=== PATIENT | male | born 1980 | race Caucasian/White ===

== ENCOUNTER 2017-10-06 09:34 | Inpatient (IN) | payer OTHER ==
[2017-10-06 10:58] LABS: Basophils % (Auto) 0.3 % (0.0-1.8); Eosinophils # (Auto) 0.1 K/mm3 (0.0-0.4); Eosinophils % (Auto) 0.9 % (0.0-4.3); Lymphocytes # (Auto) 1.5 K/mm3 (1.2-5.4); Lymphocytes % (Auto) 9.6 % (13.4-35.0); Mean Corpuscular HGB Conc 34 % (32-34); Mean Corpuscular Hemoglobin 32 pg (28-32); Mean Corpuscular Volume 94 fl (84-94); Monocytes # (Auto) 0.8 K/mm3 (0.0-0.8); Monocytes % (Auto) 5.3 % (0.0-7.3); Platelet Count 210 K/mm3 (140-440); Red Blood Count 4.68 M/mm3 (3.65-5.03); Red Cell Distribution Width 13.2 % (13.2-15.2)
[2017-10-06 11:19] LABS: Alanine Aminotransferase 62 units/L (7-56); Albumin 4.5 g/dL (3.9-5); BUN/Creatinine Ratio 8; Blood Urea Nitrogen 7 mg/dL (9-20); Calcium 9.9 mg/dL (8.4-10.2); Hemolysis Index 11; Lipase 31 units/L (13-60)
[2017-10-06 12:03] LABS: Bilirubin,Urine NEG (Negative); Blood,Urine NEG (Negative); Color,Urine Yellow (Yellow); Protein,Urine <15 mg/dL mg/dL (Negative); WBC,Urine < 1.0 /HPF (0.0-6.0)
[2017-10-06] MEDS ORDERED: ZOFRAN IV ONE (18:17)
[2017-10-06] MEDS ORDERED: DILAUDID IV ONE (18:17)
[2017-10-06] MEDS ORDERED: PEPCID IV ONE (18:17)
[2017-10-06] MEDS ORDERED: NACL 0.9% 1000 ML 1,000 ML IV ONE (18:17)
--- NOTE | 2017-10-06 18:21 | Emergency Department Report ---
ED N/V/D HPI - General Chief complaint: Nausea/Vomiting/Diarrhea Stated complaint: NAUSEA/VOMITING Time Seen by Provider: 10/06/17 18:09 Source: patient, EMS Mode of arrival: Ambulatory Limitations: Language Barrier - History of Present Illness Initial comments: Patient is a 37-year-old male with past history of chronic back pain who is presenting with nausea vomiting for the past 2 days. Patient states he has been vomiting and now has a headache and fatigue. Patient states the abdominal pain is epigastric and right upper quadrant. Patient states she's never had pain in this area before. Patient denies any chest pain cough fevers chills or recent travel or diarrhea. Description of Vomiting: food contents, watery Associated Abdominal Pain: Yes Severity: moderate Pain Scale: 7 Quality: aching, sharp Consistency: constant Improves with: none Worsens with: none - Related Data Previous Rx's Medication Instructions Recorded Last Taken Type HYDROcodone/APAP 5-325 [Cadet 1 each PO Q6HR PRN #6 tablet 04/05/16 10/06/17 Rx 5/325] Ibuprofen [Motrin 800 MG tab] 800 mg PO Q8HR PRN #30 tablet 04/05/16 10/06/17 Rx Allergies Allergy/AdvReac Type Severity Reaction Status Date / Time No Known Allergies Allergy Unverified 04/05/16 14:44 ED Review of Systems ROS: Stated complaint: NAUSEA/VOMITING Other details as noted in HPI Comment: All other systems reviewed and negative ED Past Medical Hx - Past Medical History Previous Medical History?: Yes Additional medical history: Back pain and under pain management for back pain - Surgical History Past Surgical History?: Yes Additional Surgical History: Back - Social History Smoking Status: Current Every Day Smoker Substance Use Type: Prescribed - Medications Home Medications: Home Medications Medication Instructions Recorded Confirmed Last Taken Type HYDROcodone/APAP 5-325 [Cadet 1 each PO Q6HR PRN #6 tablet 04/05/16 10/06/17 Rx 5/325] Ibuprofen [Motrin 800 MG tab] 800 mg PO Q8HR PRN #30 tablet 04/05/16 10/06/17 Rx ED Physical Exam - General Limitations: Language Barrier General appearance: alert, in no apparent distress - Head Head exam: Present: atraumatic, normocephalic - Eye Eye exam: Present: normal appearance - ENT ENT exam: Present: mucous membranes moist - Neck Neck exam: Present: normal inspection - Respiratory Respiratory exam: Present: normal lung sounds bilaterally. Absent: respiratory distress - Cardiovascular Cardiovascular Exam: Present: regular rate, normal rhythm. Absent: systolic murmur, diastolic murmur, rubs, gallop - GI/Abdominal GI/Abdominal exam: Present: soft, normal bowel sounds - Rectal Rectal exam: Present: deferred - Extremities Exam Extremities exam: Present: normal inspection - Back Exam Back exam: Present: normal inspection - Neurological Exam Neurological exam: Present: alert, oriented X3 - Psychiatric Psychiatric exam: Present: normal affect, normal mood - Skin Skin exam: Present: warm, dry, intact, normal color. Absent: rash ED Course Vital Signs 10/06/17 10/06/17 10/06/17 10:07 16:27 17:51 Temperature 97.8 F 98.6 F Pulse Rate 71 76 69 Respiratory 20 18 16 Rate Blood Pressure 151/98 146/79 Blood Pressure 122/70 [Left] O2 Sat by Pulse 99 98 98 Oximetry ED Medical Decision Making - Lab Data Result diagrams: 10/06/17 10:43 10/06/17 10:43 Lab Results 10/06/17 10/06/17 10/06/17 Range/Units 10:43 10:43 11:03 WBC 15.1 H (4.5-11.0) K/mm3 RBC 4.68 (3.65-5.03) M/mm3 Hgb 15.0 (11.8-15.2) gm/dl Hct 44.0 (35.5-45.6) % MCV 94 (84-94) fl MCH 32 (28-32) pg MCHC 34 (32-34) % RDW 13.2 (13.2-15.2) % Plt Count 210 (140-440) K/mm3 Lymph % (Auto) 9.6 L (13.4-35.0) % Bates % (Auto) 5.3 (0.0-7.3) % Eos % (Auto) 0.9 (0.0-4.3) % Baso % (Auto) 0.3 (0.0-1.8) % Lymph # 1.5 (1.2-5.4) K/mm3 Bates # 0.8 (0.0-0.8) K/mm3 Eos # 0.1 (0.0-0.4) K/mm3 Baso # 0.0 (0.0-0.1) K/mm3 Seg Neutrophils % 83.9 H (40.0-70.0) % Seg Neutrophils # 12.7 H (1.8-7.7) K/mm3 Sodium 140 (137-145) mmol/L Potassium 4.4 (3.6-5.0) mmol/L Chloride 99.2 (98-107) mmol/L Carbon Dioxide 30 (22-30) mmol/L Anion Gap 15 mmol/L BUN 7 L (9-20) mg/dL Creatinine 0.9 (0.8-1.5) mg/dL Estimated GFR > 60 ml/min BUN/Creatinine Ratio 8 % Glucose 107 H (75-100) mg/dL Calcium 9.9 (8.4-10.2) mg/dL Total Bilirubin 0.70 (0.1-1.2) mg/dL AST 125 H (5-40) units/L ALT 62 H (7-56) units/L Alkaline Phosphatase 122 (35-129) units/L Total Protein 7.7 (6.3-8.2) g/dL Albumin 4.5 (3.9-5) g/dL Albumin/Globulin Ratio 1.4 % Lipase 31 (13-60) units/L Urine Color Yellow (Yellow) Urine Turbidity Clear (Clear) Urine pH 6.0 (5.0-7.0) Ur Specific [place] 1.012 (1.003-1.030) Urine Protein <15 mg/dl (Negative) mg/dL Urine Glucose (UA) Neg (Negative) mg/dL Urine Ketones Neg (Negative) mg/dL Urine Blood Neg (Negative) Urine Nitrite Neg (Negative) Urine Bilirubin Neg (Negative) Urine Urobilinogen 4.0 (<2.0) mg/dL Ur Leukocyte Esterase Neg (Negative) Urine WBC (Auto) < 1.0 (0.0-6.0) /HPF Urine RBC (Auto) 2.0 (0.0-6.0) /HPF - Medical Decision Making Patient is a 37-year-old male who is presenting with epigastric pain nausea vomiting. Patient had ultrasound done here that shows that he has large gallstones with some mild thickening of the gallbladder consistent with early acute cholecystitis. This week with Dr. Rosales with general surgery who stated that we should admit the patient to the hospital for IV antibiotics and he will reassess the patient morning to determine if the patient needs surgery. Patient will be started on Zosyn IV fluids and pain meds when necessary pain and will be admitted to the hospital at this time. Critical care attestation.: If time is entered above; I have spent that time in minutes in the direct care of this critically ill patient, excluding procedure time. ED Disposition Clinical Impression: Acute cholecystitis Disposition: DC-01 TO HOME OR SELFCARE Is pt being admited?: Yes Does the pt Need Aspirin: No Condition: Stable Referrals: PRIMARY CARE, [Primary Care Provider] - 3-5 Days
--- NOTE | 2017-10-06 20:03 | Ultrasound Report ---
FINAL REPORT PROCEDURE: US ABDOMEN LIMITED TECHNIQUE: Real-time sonography was performed of the right upper quadrant with image documentation. CPT 93881 HISTORY: ruq and epigastric pain COMPARISON: No prior studies are available for comparison. FINDINGS: Echogenicity the liver appears normal. No masses are seen. The intrahepatic ducts do not appear to be distended. No ascites is visualized. Gallbladder wall appears mildly thickened. Large gallstone is visualized in the gallbladder. The appearance suggest acute or chronic cholecystitis. Pancreas is obscured by bowel gas and cannot be commented on. Right kidney showed no abnormality. IMPRESSION: Cholelithiasis. Gallbladder wall is mildly thickened suggesting acute or chronic cholecystitis. No ascites is seen. No other abnormalities are identified. The pancreas is obscured by bowel gas and cannot be commented on.
[2017-10-06] MEDS ORDERED: ZOFRAN IV PRN (21:29)
[2017-10-06] MEDS: MORPHINE IV PRN (22:47)
[2017-10-06] MEDS: NACL 0.9% 1000 ML 1,000 ML IV SCH (22:47)
[2017-10-06] MEDS: ZOSYN/NS 4.5GM/100ML 4.5 GM/100 ML VIAL IV SCH (23:05)
[2017-10-07] MEDS: MORPHINE IV PRN ×4 (05:16→20:57)
[2017-10-07] MEDS: NACL 0.9% 1000 ML 1,000 ML IV SCH (05:20)
[2017-10-07] MEDS: ZOSYN/NS 4.5GM/100ML 4.5 GM/100 ML VIAL IV SCH ×2 (05:27→14:00)
[2017-10-07 07:20] LABS: Hematocrit 38.2 % (35.5-45.6); Hemoglobin 13.1 gm/dl (11.8-15.2); Mean Corpuscular HGB Conc 34 % (32-34); Mean Corpuscular Hemoglobin 32 pg (28-32); Mean Corpuscular Volume 93 fl (84-94); Platelet Count 193 K/mm3 (140-440); Red Blood Count 4.11 M/mm3 (3.65-5.03); Red Cell Distribution Width 12.8 % (13.2-15.2)
[2017-10-07 07:49] LABS: Alanine Aminotransferase 219 units/L (7-56); Albumin 3.8 g/dL (3.9-5); BUN/Creatinine Ratio 9; Blood Urea Nitrogen 7 mg/dL (9-20); Calcium 9.1 mg/dL (8.4-10.2); Hemolysis Index 3
[2017-10-07] MEDS ORDERED: LACTATED RINGERS 1,000 ML IV SCH (10:00)
[2017-10-07] MEDS ORDERED: DEMEROL IV PRN ×2 (10:30→15:26)
[2017-10-07] MEDS ORDERED: ZOFRAN IV PRN (10:30)
[2017-10-07] MEDS ORDERED: VERSED IV NR (10:30)
[2017-10-07] MEDS: ROXICODONE PO PRN ×3 (10:41→22:10)
--- NOTE | 2017-10-07 11:36 | History and Physical Report ---
History of Present Illness Date of examination: 10/07/17 Date of admission: 10/06/17 20:40 Chief complaint: RUQ pain with N/V. History of present illness: 37-year-old fairly healthy male presented to the emergency room last night with acute onset of right upper quadrant pain. Associated with nausea and vomiting. He felt feverish and had sweats. He has never had anything like this before. Pain is better now. Past History Past Medical History: other (chronic back pain) Past Surgical History: No surgical history Social history: smoking (1 pack per day). denies: alcohol abuse, prescription drug abuse, IV drug use Family history: no significant family history Medications and Allergies Allergies Allergy/AdvReac Type Severity Reaction Status Date / Time No Known Allergies Allergy Unverified 04/05/16 14:44 Home Medications Medication Instructions Recorded Confirmed Last Taken Type HYDROcodone/APAP 5-325 [[place] 1 each PO Q6HR PRN #6 tablet 04/05/16 10/06/17 Rx 5/325] Ibuprofen [Motrin 800 MG tab] 800 mg PO Q8HR PRN #30 tablet 04/05/16 10/06/17 Rx Morphine [Morphine TAB] 30 mg PO Q8HR PRN 10/07/17 10/07/17 10/06/17 History Oxycodone HCl [oxyCODONE TAB] 15 mg PO Q4HR PRN 10/07/17 10/07/17 10/06/17 History Active Meds: Active Medications Sodium Chloride (Nacl 0.9% 1000 Ml) 1,000 mls @ 150 mls/hr IV DIRECT SHORTY Last Admin: 10/07/17 05:20 Dose: 150 mls/hr Piperacillin Sod/Tazobactam Sod (Zosyn/Ns 4.5gm/100ml) 4.5 gm in 100 mls @ 200 mls/hr IV Q8HR SHORTY; Protocol Last Admin: 10/07/17 05:27 Dose: 200 mls/hr Lactated Ringer's (Lactated Ringers) 1,000 mls @ 100 mls/hr IV DIRECT SHORTY Stop: 10/07/17 18:00 Lactated Ringer's (Lactated Ringers) 1,000 mls @ 100 mls/hr IV DIRECT SHORTY Meperidine HCl (Demerol) 25 mg IV ONCE PRN PRN Reason: Shivering Stop: 10/07/17 16:00 Midazolam HCl (Versed) 2 mg IV PREOP NR Stop: 10/07/17 18:00 Morphine Sulfate (Morphine) 4 mg IV Q4HR PRN PRN Reason: Pain Last Admin: 10/07/17 08:48 Dose: 4 mg Ondansetron HCl (Zofran) 4 mg IV Q4H PRN PRN Reason: Nausea And Vomiting Ondansetron HCl (Zofran) 4 mg IV ONCE PRN PRN Reason: Nausea And Vomiting Stop: 10/07/17 18:00 Oxycodone HCl (Roxicodone) 10 mg PO Q4H PRN PRN Reason: Pain, Moderate (4-6) Last Admin: 10/07/17 10:41 Dose: 10 mg Review of Systems - Constitutional fever, sweats, chronic pain (low back), no weight loss, no chills - EENT Ears, nose, mouth and throat: other (dry mouth) - Cardiovascular no chest pain - Respiratory no cough, no shortness of breath - Gastrointestinal abdominal pain (better now), nausea, vomiting, diarrhea, no hematemesis, no BRBPR, no melena, no hematochezia, no jaundice, no dyspepsia/bloating - Genitourinary no dysuria - Muskuloskeletal low back pain (chronic) - Integumentary no rash, no pruritis, no jaundice - Hematologic/Lymphatic no easy bruising, no easy bleeding Exam Vital Signs Temp Pulse Resp BP Pulse Ox 97.8 F 71 20 151/98 99 10/06/17 10:07 10/06/17 10:07 10/06/17 10:07 10/06/17 10:07 10/06/17 10:07 - General physical appearance Positive: well developed, well nourished, no distress, no pain - Eyes Positive: normal occular movement - ENT Positive: other (dry oral mucosa) - Neck Positive: trachea midline - Respiratory Positive: normal expansion, normal respiratory effort, clear to auscultation - Cardiovascular Rhythm: regular - Abdomen Abdomen: Present: soft, tender (mild in RUQ/epigatsric area), bowel sounds normal, other (tattoo over anterior abdominal wall). Absent: distended, guarding, rigid, surgical scars - Genitourinary Male Genitourinary: deferred - Integumentary no rash - Neurologic Neurologic: alert and oriented to time, place and person, motor strength and sensation are grossly intact - Psychiatric Psychiatric: appropriate mood/affect, intact judgment & insight, memory intact, cooperative Results - Labs 10/07/17 07:06 10/07/17 07:06 Abnormal lab results 10/07/17 10/07/17 Range/Units 07:06 07:06 RDW 12.8 L (13.2-15.2) % BUN 7 L (9-20) mg/dL Glucose 102 H (75-100) mg/dL AST 208 H (5-40) units/L ALT 219 H (7-56) units/L Alkaline Phosphatase 131 H (35-129) units/L Albumin 3.8 L (3.9-5) g/dL Diabetes panel 10/07/17 Range/Units 07:06 Sodium 144 (137-145) mmol/L Potassium 4.3 (3.6-5.0) mmol/L Chloride 105.4 (98-107) mmol/L Carbon Dioxide 27 (22-30) mmol/L BUN 7 L (9-20) mg/dL Creatinine 0.8 (0.8-1.5) mg/dL Glucose 102 H (75-100) mg/dL Calcium 9.1 (8.4-10.2) mg/dL AST 208 H (5-40) units/L ALT 219 H (7-56) units/L Alkaline Phosphatase 131 H (35-129) units/L Total Protein 6.5 (6.3-8.2) g/dL Albumin 3.8 L (3.9-5) g/dL Calcium panel 10/07/17 Range/Units 07:06 Calcium 9.1 (8.4-10.2) mg/dL Albumin 3.8 L (3.9-5) g/dL Pituitary panel 10/07/17 Range/Units 07:06 Sodium 144 (137-145) mmol/L Potassium 4.3 (3.6-5.0) mmol/L Chloride 105.4 (98-107) mmol/L Carbon Dioxide 27 (22-30) mmol/L BUN 7 L (9-20) mg/dL Creatinine 0.8 (0.8-1.5) mg/dL Glucose 102 H (75-100) mg/dL Calcium 9.1 (8.4-10.2) mg/dL Adrenal panel 10/07/17 Range/Units 07:06 Sodium 144 (137-145) mmol/L Potassium 4.3 (3.6-5.0) mmol/L Chloride 105.4 (98-107) mmol/L Carbon Dioxide 27 (22-30) mmol/L BUN 7 L (9-20) mg/dL Creatinine 0.8 (0.8-1.5) mg/dL Glucose 102 H (75-100) mg/dL Calcium 9.1 (8.4-10.2) mg/dL Total Bilirubin 0.60 (0.1-1.2) mg/dL AST 208 H (5-40) units/L ALT 219 H (7-56) units/L Alkaline Phosphatase 131 H (35-129) units/L Total Protein 6.5 (6.3-8.2) g/dL Albumin 3.8 L (3.9-5) g/dL - Imaging US - abdomen: report reviewed, image reviewed Assessment and Plan - Patient Problems (1) Acute cholecystitis Current Visit: Yes Status: Acute Plan to address problem: Patient stable. Based on history, exam, labs, ultrasound, patient appears to have acute cholecystitis. We discussed options of surgery versus antibiotic therapy. He wishes to proceed with surgery. Procedure, risks, benefits, alternatives were discussed. All questions were answered. I've given them information on the surgery as a handout and I explained it as well. Consent was obtained. Will proceed to surgery today. Time=60min
[2017-10-07] MEDS ORDERED: XYLOCAINE 1% MPF 5 mL ONE (13:17)
[2017-10-07] MEDS ORDERED: MARCAINE 0.5% 30 ML INFILTRATI ONE (13:17)
[2017-10-07] MEDS ORDERED: SUBLIMAZE ONE (13:19)
[2017-10-07] MEDS ORDERED: DIPRIVAN 10 MG/ML IV ONE (13:20)
[2017-10-07] MEDS ORDERED: NACL 0.9% 250ML 250 ML ONE (13:23)
[2017-10-07] MEDS ORDERED: VERSED ONE (13:41)
[2017-10-07] MEDS ORDERED: NACL 0.9% IR ONE ×2 (14:14→14:48)
[2017-10-07] MEDS ORDERED: MARCAINE 0.5% INFILTRATI ONE (14:14)
[2017-10-07] MEDS ORDERED: NACL 0.9% 250ML IV ONE (14:14)
[2017-10-07] MEDS ORDERED: XYLOCAINE 1% MPF 5 mL INFILTRATI ONE (14:15)
[2017-10-07] MEDS ORDERED: DECADRON ONE (14:30)
[2017-10-07] MEDS ORDERED: XYLOCAINE MPF 2% ONE (14:32)
[2017-10-07] MEDS ORDERED: ZEMURON IV ONE (14:32)
[2017-10-07] MEDS ORDERED: ZOFRAN ONE (14:32)
[2017-10-07] MEDS ORDERED: ROBINUL ONE (14:32)
[2017-10-07] MEDS ORDERED: NEOSTIGMINE ONE (14:32)
[2017-10-07] MEDS ORDERED: LACTATED RINGERS 1,000 ML ONE (14:52)
--- NOTE | 2017-10-07 15:29 | Post Operative Note ---
Date of procedure: 10/07/17 (Dictation#[id number]) Pre-op diagnosis: cholecystitis Post-op diagnosis: same Findings: mild thickening in gallbladder bed. Mild adhesions around neck. Normal cholangiogram Procedure: lap gary with IOC Anesthesia: HARMONYA Surgeon: FABRICE OROZCO Estimated blood loss: minimal Pathology: list (gallbladder) Specimen disposition: to lab Condition: stable Disposition: PACU
--- NOTE | 2017-10-07 15:59 | Fluoroscopy Report ---
Operative cholangiogram: A single image demonstrates good filling of the CBD and proximal left and right intrahepatic branches. There is contrast entering the duodenum as well as the gallbladder. No other information obtained.
--- NOTE | 2017-10-07 18:36 | Operative Report ---
PREOPERATIVE DIAGNOSIS: Cholecystitis. POSTOPERATIVE DIAGNOSIS: Cholecystitis. PROCEDURE: Laparoscopic cholecystectomy with intraoperative cholangiogram. ATTENDING PHYSICIAN: Tana Rsoales MD ANESTHESIA: General. ESTIMATED BLOOD LOSS: Minimal. FLUIDS: 1 liter. FINDINGS: Fairly normal looking gallbladder that was slightly thickened. Adhesions were noted around the neck and there were some dense adhesions in the gallbladder bed. One large stone was noted within the gallbladder. The patient had a normal cholangiogram. SPECIMENS: Gallbladder. DRAINS: None. COMPLICATIONS: None. DISPOSITION: Stable transport to Recovery Room. INDICATIONS: This is a 37-year-old male who presented to the Emergency Room with acute onset of right upper quadrant pain yesterday. The patient was found to have an elevated white count as well as elevated liver enzymes. Ultrasound was done, which showed a thickened gallbladder suggestive of cholecystitis. The patient was assessed to be in need for laparoscopic cholecystectomy. Laparoscopic cholecystectomy with intraoperative cholangiogram procedure, risks, benefits and alternatives were discussed. The patient elected to proceed with surgery. Consent was obtained. OPERATIVE NOTE: The patient was brought to the operating room and placed on the table in supine position. After adequate general anesthesia was established, the patient was prepped and draped in usual sterile fashion. SCDs were in place. The patient was already on scheduled antibiotics. Timeout was performed. I began by insufflating the abdomen by placing a Veress needle in the left upper quadrant approximately 3 fingerbreadths below the costal margin. I was able to insufflate on the first attempt. Using the Optiview technique, I placed a 5 mm port in the right side of the abdomen. I entered the peritoneal cavity safely. After the abdomen was insufflated, we could see where the Veress needle had been inserted. There was no injury to the underlying structures. The Veress needle was removed. Where the port was inserted, there were no injuries to the underlying structures. Based on the location of the gallbladder, I then placed the other ports, a 10 mm port was placed at the umbilicus in the supraumbilical position, 5 mm port was placed in the epigastric area, and another one in between the two 5 mm ports. We began by elevating the gallbladder over the liver edge. I dissected out the cystic duct, cystic artery and the critical view. There were some mild adhesions as mentioned previously in the area of the neck of the gallbladder. I was able to take this down safely with the Harmonic scalpel. Once the cystic duct was dissected out, a clip was placed on the side of the gallbladder. A small opening was made in the cystic duct and cholangiogram catheter was inserted. Cholangiogram was done with full strength contrast. We had a very nice visualization of the cystic duct which was long, the common duct, both common hepatic and common bile duct and we were able to see the left and right hepatic branches. I examined the images myself. We had good drainage, immediate drainage of the contrast into the duodenum. I saw no filling defects. Cholangiogram was assessed to be negative. Catheter was removed. Three clips were placed distally on the cystic duct close to where the opening had been made. Clip was placed on the cystic artery away from the gallbladder. Both the cystic artery and cystic duct were divided with the Harmonic scalpel. The gallbladder was then removed from the bed with Harmonic scalpel. In the mid portion, there were some dense adhesions that did lead to a small opening in the gallbladder. The bile was normal in color and we had some very minor oozing of the gallbladder bed. Once the gallbladder was removed, it was placed in EndoCatch bag, left on the side. We irrigated out the area thoroughly. By this point, any oozing had stopped. We saw no further oozing. All clips were in place. I saw no bleeding from the cystic artery or any bile drainage from the cystic duct. Everything looked very good. Irrigation was coming back essentially clear. We felt very good about how the gallbladder bed looked. There were no surrounding injuries. We then proceeded to remove the EndoCatch bag from the umbilical port site. This was done without having to stretch out the fascia. Using a Tomer-Srikanth needle under direct vision, we closed the umbilical fascia with an 0 Vicryl stitch. We had an airtight closure. We then proceeded to remove the 5 mm ports under direct vision. There was no bleeding from the port sites. We desufflated the abdomen. A total of 40 mL of mixture of 0.5% Marcaine and 1% lidocaine were injected into the incision sites. 4-0 Monocryl was used to close the incisions with interrupted sutures at the umbilicus. I ran the suture. Skin was cleaned and dried. Dermabond was placed. The patient tolerated the procedure well. There were no complications. I examined the gallbladder prior to sending it to pathology. We clearly had divided the cystic duct. I saw no other ductal structures associated with the gallbladder. I went out and spoke to the . I gave her a complete report. She was very appreciative. JOB# [id number] BRENDA/TAMMY
[2017-10-07] MEDS: LACTATED RINGERS 1,000 ML IV SCH (21:03)
[2017-10-07] MEDS: TYLENOL PO PRN (23:38)
[2017-10-08] MEDS: MORPHINE IV PRN ×3 (01:27→11:50)
[2017-10-08] MEDS: ROXICODONE PO PRN ×3 (04:29→13:01)
[2017-10-08] MEDS: LACTATED RINGERS 1,000 ML IV SCH (06:32)
[2017-10-08] MEDS: TYLENOL PO PRN (07:49)
[2017-10-08 08:09] VITALS: BP 107/61
--- NOTE | 2017-10-08 11:26 | Discharge Summary ---
Providers - Providers Date of Admission: 10/06/17 20:40 Date of discharge: 10/08/17 Attending physician: FABRICE OROZCO MD Primary care physician: INSURANCE WRITER Hospitalization Reason for admission: cholecystitis Condition: Stable Pertinent studies: US of RUQ Procedures: Lap gary with IOC Hospital course: uneventful. Taken for surgery day after admitted from ED. Uneventful surgery. Feels better the next day. discharged in stable condition. Disposition: DC-01 TO HOME OR SELFCARE Time spent for discharge: 30 min - Discharge Diagnoses (1) Acute cholecystitis Status: Acute Comment: Feels better today. Path pending. f/u in 2 weeks Core Measure Documentation - Palliative Care Palliative Care/ Comfort Measures: Not Applicable - Core Measures Any of the following diagnoses?: none Exam - Constitutional Vitals: Temp Pulse Resp BP Pulse Ox 98.9 F 57 L 22 107/61 96 10/08/17 07:32 10/08/17 07:32 10/08/17 07:32 10/08/17 07:32 10/08/17 07:32 General appearance: Present: no acute distress, well-nourished - EENT Eyes: Present: EOM intact - Neck Neck: Present: supple - Respiratory Respiratory effort: normal - Cardiovascular Rhythm: regular - Abdominal General gastrointestinal: Present: soft, tender (minimal - appropriate), non- distended, normal bowel sounds - Integumentary Integumentary: Present: clear, warm, dry - Psychiatric Psychiatric: appropriate mood/affect, intact judgment & insight, memory intact, cooperative - Neurologic Neurologic: CNII-XII intact, moves all extremities Plan Activity: no driving until cleared by PCP, other (no heavy lifting for 6 weeks) Diet: regular Wound: open to air, other (May shower tomorrow. Pat dry wounds) Follow up with: PAPA FRAZIER MD [Primary Care Provider] - 3-5 Days FABRICE OROZCO MD [Staff Physician] - 14 Days
== END 2017-10-08 13:40 | disposition home or self-care (01) | DRG 419 ==
LOC: ED 09:34 → 3A 20:40
PROVIDERS: ADMIT Surgery; ATTEND Surgery
PROC: 0FT44ZZ Resection of Gallbladder, Percutaneous Endoscopic Approach (ICD-10-PCS; principal; 2017-10-07)
PROC: BF131ZZ Fluoroscopy of Gallbladder and Bile Ducts using Low Osmolar Contrast (ICD-10-PCS; 2017-10-07)
DX: K81.0 Acute cholecystitis (principal); M54.9 Dorsalgia, unspecified; G89.29 Other chronic pain; F17.210 Nicotine dependence, cigarettes, uncomplicated
CPT/HCPCS: 36415; 74300; 76705; 80053; 81001; 83690; 85025; 85027; 88304; 96374; 96375; A4217; J1100; J1170; J2175; J2250; J2270; J2405; J2543; J2704; J2710; J3010; J7030; J7050; J7120; Q9967